=== PATIENT | male | born 1990 | race Caucasian/White ===

== ENCOUNTER 2016-10-12 16:53 | Emergency (ER) | payer SELFPAY ==
[2016-10-12] MEDS ORDERED: BACTRIM DS TAB1 EACH PO (18:03)
[2016-10-12 18:09] VITALS: BP 123/78
== END 2016-10-12 18:06 | disposition home or self-care (01) ==
LOC: ED 16:53
DX: L73.9 Follicular disorder, unspecified (principal); J01.90 Acute sinusitis, unspecified; F17.210 Nicotine dependence, cigarettes, uncomplicated

== ENCOUNTER → 2017-07-08 | Outpatient (CLI) | payer SELFPAY ==
[~2017-07-08] MED LIST: BACTRIM DS TAB1 EACH PO
== END ==
LOC: RAD 12:37
DX: M25.571 Pain in right ankle and joints of right foot (principal)